=== PATIENT | male | born 1995 | race African-American/Black ===

== ENCOUNTER 2017-02-12 11:43 | Emergency (ER) | payer OTHER ==
[~2017-02-12 11:43] MED LIST: IBUPROFEN400 MG PO; MOBIC PO; NO MEDICATIONS
== END 2017-02-12 11:57 | disposition home or self-care (01) ==
LOC: SED 11:43
DX: J32.9 Chronic sinusitis, unspecified (principal); F17.200 Nicotine dependence, unspecified, uncomplicated
CPT/HCPCS: 96361; 96374; 96375; 99284; J0780; J1200; J1885

== ENCOUNTER 2017-05-24 12:48 | Emergency (ER) | payer OTHER ==
[~2017-05-24] VITALS: Ht 185.4 cm; Wt 127.0 kg
--- NOTE | ~2017-05-24 | CR20 ---
[facility] A Service of [facility] & [facility] RADIOLOGY TEXT RESULTS PATIENT: HARJIT CABALLERO LOCATION: CFTX : 95 UNIT #: [id number] AGE: [address]: Whitley Cano APRN SEX: M ORDER DR: [id number] [facility] [address] [place], [place] [address] [id number] E MR#: [id number] Acc #: [id number] NAME: HARJIT CABALLERO : 1995 SEX: M STUDY DATE/TIME: 05/24/2017 13:26 UNIT: TX ROOM: STUDY DESCRIPTION: CR Ankle Min 3 Views Lt Attending Physician: Whitley Cano A.P.R.N. Ordering Physician: Ed Viral Barker M.D. Primary Care Physician: Primary Care Physician No MEDICAL IMAGING REPORT This report is preliminary unless electronic signature is present EXAM Left ankle series INDICATIONS Left ankle pain since last night. PROCEDURE Three views of the left ankle. COMPARISON None. FINDINGS No acute fracture or dislocation. IMPRESSION No acute findings. Dictated by... Kulwant Mensah M.D. THIS IS AN ELECTRONICALLY VERIFIED REPORT Kulwant Mensah M.D. at 05/26/2017 5:02 PM EED/miranda TD: 05/24/2017 22:49 JOB #: [id number] MEDICAL IMAGING REPORT Page 1 of 1 COPY
--- NOTE | ~2017-05-24 | CR126 ---
[facility] A Service of [facility] & [facility] RADIOLOGY TEXT RESULTS PATIENT: HARJIT CABALLERO LOCATION: CFTX : 95 UNIT #: [id number] AGE: [address]: Whitley Cano APRN SEX: M ORDER DR: [id number] [facility] [address] [facility] [place], [place] [address] [id number] E MR#: [id number] Acc #: [id number] NAME: HARJIT CABALLERO : 1995 SEX: M STUDY DATE/TIME: 05/24/2017 13:27 UNIT: TX ROOM: STUDY DESCRIPTION: CR Foot Complete Min 3 View Lt Attending Physician: Whitley Cano A.P.R.N. Ordering Physician: Ed Viral Barker M.D. Primary Care Physician: Primary Care Physician No MEDICAL IMAGING REPORT This report is preliminary unless electronic signature is present EXAM Left foot series INDICATION Left foot pain since an injury last night. PROCEDURE 3 views of the left foot COMPARISON None. FINDINGS No acute fracture or dislocation. IMPRESSION No acute findings. Dictated by... Kulwant Mensah M.D. THIS IS AN ELECTRONICALLY VERIFIED REPORT Kulwant Mensah M.D. at 05/26/2017 5:02 PM DEL/zana TD: 05/24/2017 22:52 JOB #: [id number] MEDICAL IMAGING REPORT Page 1 of 1 COPY
== END 2017-05-24 14:15 | disposition home or self-care (01) ==
LOC: CED 12:48 → CFTX 12:48
DX: S93.422A Sprain of deltoid ligament of left ankle, initial encounter (principal); S93.612A Sprain of tarsal ligament of left foot, initial encounter; F17.200 Nicotine dependence, unspecified, uncomplicated; X50.0XXA Overexertion from strenuous movement or load, initial encounter; Y92.830 Public park as the place of occurrence of the external cause
CPT/HCPCS: 29540; 73610; 73630; 99283